=== PATIENT | female | born 1940 ===

== ENCOUNTER 2018-03-11 12:18 | Emergency (ER) | payer MEDICARE, MEDICAID ==
[2018-03-11 12:34] VITALS: O2SAT 98
--- NOTE | 2018-03-11 13:33 | RAD ---
Date of service: 03/11/2018 PROCEDURE: Left Knee Radiographs. HISTORY: Pain. COMPARISON: 07/24/2016 FINDINGS: BONES: Bone alignment is normal. There is periarticular bone demineralization. No acute displaced fracture or bone destruction. JOINTS: Status post knee arthroplasty. Stable appearance of prosthesis in the distal femur. Stable appearance of the proximal tibia post removal of the prosthesis. JOINT EFFUSION: None. OTHER FINDINGS: None. IMPRESSION: No acute fracture or dislocation. Status post total knee arthroplasty, stable appearance of the knee joint.
--- NOTE | 2018-03-11 13:36 | RAD ---
Date of service: 03/11/2018 PROCEDURE: Radiographs of the Lumbar Spine. HISTORY: left sided lowback pain COMPARISON: No prior. FINDINGS: BONES: There is degenerative 6 mm anterior listhesis of L3 on L4 and 3 mm anterior listhesis of L4 on L5. There is normal lumbar lordosis. There is diffuse bone demineralization. There is an age indeterminate osteoporotic compression deformity in L1 vertebral body. DISC SPACES: Advanced multilevel degenerative disc disease with reduced disc heights, anterior osteophytes and multilevel facet arthropathy, worse at L4-5. OTHER FINDINGS: No pathologic soft tissue calcifications. Both sacroiliac joints are normal. IMPRESSION: Age indeterminate osteoporotic compression deformity in L1 vertebral body. Advanced multilevel degenerative disc disease in the lumbar spine worse at L4-5.
--- NOTE | 2018-03-11 13:40 | C.PDOC ---
History Of Present Illness Patient RACHEL from [facility] after a slip and fall. Translation by , states she slipped and fell onto her B/L knees. Patient denies head injury or LOC, dizziness, chest pain, palpitations, SOB. She is c/o L knee pain and low back pain. 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) Current Symptoms Are (Timing): Still Present Severity: Mild Past Medical History Reviewed: Historical Data, Nursing Documentation, Vital Signs Vital Signs: Last Vital Signs Temp 98.3 F 03/11/18 12:31 Pulse 74 03/11/18 12:31 Resp 18 03/11/18 12:31 BP 154/74 H 03/11/18 12:31 Pulse Ox 98 03/11/18 12:31 - Medical History PMH: Diabetes, Hypercholesterolemia Surgical History: Appendectomy Other Surgeries: left total knee replacement Family History: States: No Known Family Hx - Social History Hx Tobacco Use: No Hx Alcohol Use: No Hx Substance Use: No - Immunization History Hx Tetanus Toxoid Vaccination: Yes Hx Influenza Vaccination: Yes Hx Pneumococcal Vaccination: Yes Review Of Systems Constitutional: Negative for: Fever, Chills Cardiovascular: Negative for: Chest Pain, Palpitations Respiratory: Negative for: Shortness of Breath Musculoskeletal: Positive for: Other (B/L knee pain, low back pain ) Neurological: Negative for: Weakness, Numbness, Incoordination, Confusion, Seizures, Altered Mental Status, Headache, Dizziness Physical Exam - Physical Exam Appears: Well, Non-toxic, In Acute Distress (in mild pain ) Oral Mucosa: Moist Cardiovascular: Rhythm Regular Respiratory: Normal Breath Sounds, No Rales, No Rhonchi, No Wheezing Back: No CVA Tenderness, No Vertebral Tenderness, Paraspinal Tenderness (lumbar paraspinal TTP at appprox L2-L4 level) Extremity: Normal ROM, No Pedal Edema, No Calf Tenderness, Capillary Refill (< 2 sec all digits ), No Swelling, Other (Left anterior knee mild diffuse TTP with out swelling/deformity/erythema, (+) healed surgical scar ) Extremity: Bilateral: Normal ROM Pulses: Left Dorsalis Pedis: Normal, Right Dorsalis Pedis: Normal Neurological/Psych: Oriented x3, Normal Speech, Normal Cognition, Normal Cranial Nerves, No Cerebellar Signs, Normal Motor, Normal Sensation Gait: Steady ED Course And Treatment O2 Sat by Pulse Oximetry: 98 (RA) Pulse Ox Interpretation: Normal - Other Rad LS spine Xray X-Ray: Viewed By Me, Read By Radiologist Interpretation: Accession No. : [id number]. Patient Name / ID : HIEN Cobb / [id number]. Exam Date : 03/11/2018 13:10:41 ( Approved ). Study Comment : Sex / Age : F / 77Y. Creator : Jeanette Marquez MD. Dictator : Jeanette Marquez MD. Manager Credit Collections : Supercharge Repair Supervisor : Jeanette Marquez MD. Approver2 : Report Date : 03/11/2018 13:33:28. My Comment : . Date of service: 03/11/2018. PROCEDURE: Radiographs of the Lumbar Spine. HISTORY: left sided lowback pain. COMPARISON: No prior. FINDINGS: BONES: There is degenerative 6 mm anterior listhesis of L3 on L4 and 3 mm anter ior listhesis of L4 on L5. There is normal lumbar lordosis. There is diffuse bone demineralization. There is an age indeterminate osteoporotic compression deformity in L1 vertebral body. DISC SPACES: Advanced multilevel degenerative disc disease with reduced disc heights, anterior osteophytes and multilevel facet arthropathy, worse at L4-5. OTHER FINDINGS: No pathologic soft tissue calcifications. Both sacroiliac joints are normal. IMPRESSION: Age indeterminate osteoporotic compression deformity in L1 vertebral body. Advanced multilevel degenerative disc disease in the lumbar spine worse at L4-5. Left knee Xray X-Ray: Viewed By Me, Read By Radiologist Interpretation: Accession No. : [id number]. Patient Name / ID : HIEN Cobb / [id number]. Exam Date : 03/11/2018 13:06:24 ( Approved ). Study Comment : Sex / Age : F / 77Y. Creator : Jeanette Marquez MD. Dictator : Jeanette Marquez MD. Manager Credit Collections : Supercharge Repair Supervisor : Jeanette Marquez MD. Approver2 : Report Date : 03/11/2018 13:29:45. My Comment : . Date of service: 03/11/2018. PROCEDURE: Left Knee Radiographs. HISTORY: Pain. COMPARISON: 07/24/2016. FINDINGS: BONES: Bone alignment is normal. There is periarticular bone demineralization. No acute displaced fracture or bone destruction. JOINTS: Status post knee arthroplasty. Stable appearance of prosthesis in the distal femur. Stable appearance of the proximal tibia post removal of the prosthesis. JOINT EFFUSION: None. OTHER FINDINGS: None. IMPRESSION: No acute fracture or dislocation. Status post total knee arthroplasty, stable appearance of the knee joint. Progress Note: Patient given PO tylenol. Xrays of L knee and LS spine ordered and reviewed. Reevaluation Time: 13:40 Reassessment Condition: Improved (On reassessment, patient is resting comfortably and states she feels better. She is ambulating normally in the ED. She was instructed to follow up with her orthopedic surgeon within 1 week, and understands she should return to ED if symptoms worsen.) Disposition Counseled Patient/Family Regarding: Studies Performed, Diagnosis, Need For Followup, Rx Given - Disposition Referrals: Som Calero MD [Staff Provider] - Disposition: HOME/ ROUTINE Disposition Time: 13:40 Condition: STABLE Additional Instructions: FOLLOW UP WITH YOUR DOCTOR IN 1-2 DAYS, AND WITH YOUR ORTHOPEDIC SURGEON IF SYMPTOMS PERSIST USE TYLENOL NEEDED FOR PAIN RETURN TO ER IF SYMPTOMS WORSEN Prescriptions: Acetaminophen [Tylenol 325mg tab] 650 mg PO Q6 PRN #30 tab PRN Reason: pain/fever Instructions: Knee Sprain (DC), Patellofemoral Pain Forms: [employer] (Ghanaian) Print Language: ARGENTINE - Clinical Impression Clinical Impression: Lumbar sprain, Left knee pain
[2018-03-11 14:03] VITALS: BP 147/72; PULSE 76; RESP 16; TEMP 98
== END 2018-03-11 14:03 | disposition home or self-care (01) ==
LOC: C.ER 12:18
DX: S33.5XXA Sprain of ligaments of lumbar spine, initial encounter (principal); W01.0XXA Fall on same level from slipping, tripping and stumbling without subsequent striking against object, initial encounter; Y92.29 Other specified public building as the place of occurrence of the external cause; M25.562 Pain in left knee; E78.5 Hyperlipidemia, unspecified; E11.9 Type 2 diabetes mellitus without complications

== ENCOUNTER 2018-06-16 17:14 | Emergency (ER) | payer MEDICARE, MEDICAID ==
--- NOTE | 2018-06-16 18:37 | CT ---
Date of service: 06/16/2018 PROCEDURE: CT HEAD WITHOUT CONTRAST. HISTORY: dizziness COMPARISON: None available. TECHNIQUE: Axial computed tomography images were obtained through the head/brain without intravenous contrast. Radiation dose: Total exam DLP = 1050.74 mGy-cm. This CT exam was performed using one or more of the following dose reduction techniques: Automated exposure control, adjustment of the mA and/or kV according to patient size, and/or use of iterative reconstruction technique. FINDINGS: HEMORRHAGE: No intracranial hemorrhage. BRAIN: Diffuse atrophy with prominence of the ventricles and sulci noted. No mass effect or edema. Intracranial atherosclerosis. The gomez-white matter differentiation appears intact. Please note that MRI with diffusion imaging is more sensitive in the detection of acute ischemic event. VENTRICLES: No hydrocephalus. CALVARIUM: Unremarkable. PARANASAL SINUSES: Unremarkable as visualized. No significant inflammatory changes. MASTOID AIR CELLS: Unremarkable as visualized. No inflammatory changes. OTHER FINDINGS: Left scalp hematoma. IMPRESSION: Left scalp hematoma. No acute intracranial pathology identified.
--- NOTE | 2018-06-16 18:46 | CT ---
Date of service: 06/16/2018 PROCEDURE: CT Cervical Spine without contrast HISTORY: fall COMPARISON: None available. TECHNIQUE: Axial computed tomography images were obtained of the cervical spine without the use of intravenous contrast. Coronal and sagittal reformatted images were created and reviewed. Radiation dose: Total exam DLP = 486.2 mGy-cm. This CT exam was performed using one or more of the following dose reduction techniques: Automated exposure control, adjustment of the mA and/or kV according to patient size, and/or use of iterative reconstruction technique. FINDINGS: VERTEBRAE: No fracture. Normal alignment. No destructive bony lesion. DISCS/SPINAL CANAL/NEURAL FORAMINA: Reversal of the anatomic lordosis with kyphosis. Degree: Mild cervical spondylotic changes C4-5, C6-7. Similar changes incompletely visible in the upper thoracic spine. PARASPINAL SOFT TISSUES: Unremarkable. OTHER FINDINGS: None. IMPRESSION: No acute findings related to/ accounting for the clinical presentation.
--- NOTE | 2018-06-16 18:57 | C.PDOC ---
History Of Present Illness 77 year old female presents to ED s/p trip and fall that occurred this morning. Patient hit her head and complains of left lateral head pain. Patient denies loss of consciousness, chest pain, and SOB. - HPI Time Seen by Provider: 06/16/18 17:56 Chief Complaint (Nursing): Trauma History Per: Patient History/Exam Limitations: no limitations Onset/Duration Of Symptoms: Hrs Location Of Injury: Left: Head (hit left lateral head) - Fall Fall:Prior To Injury: Tripped Past Medical History Reviewed: Historical Data, Nursing Documentation, Vital Signs Vital Signs: Last Vital Signs Temp 97.4 F L 06/16/18 17:41 Pulse 100 H 06/16/18 17:41 Resp 18 06/16/18 17:41 BP 167/64 H 06/16/18 17:41 Pulse Ox 100 06/16/18 17:41 - Medical History PMH: Diabetes, Hypercholesterolemia Surgical History: Appendectomy Family History: States: Unknown Family Hx - Social History Hx Tobacco Use: No Hx Alcohol Use: No Hx Substance Use: No - Immunization History Hx Tetanus Toxoid Vaccination: Yes Hx Influenza Vaccination: Yes Hx Pneumococcal Vaccination: Yes Review Of Systems Except As Marked, All Systems Reviewed And Found Negative. Neurological: Positive for: Headache (head pain) Physical Exam - Physical Exam Head: Other (hemotoma to the left peritoneal temporal area, no gross step offs ) Eye(s): bilateral: Normal Inspection, PERRL, EOMI Neck: No Other (cervical-spinal tenderness) Chest: Symmetrical Cardiovascular: Rhythm Regular, No Murmur Respiratory: Normal Breath Sounds, No Rales, No Rhonchi, No Wheezing Gastrointestinal/Abdominal: Normal Exam, No Tenderness Extremity: Bilateral: Atraumatic, Normal Color And Temperature, Normal ROM Neurological/Psych: Oriented x3, Normal Speech, Normal Cognition ED Course And Treatment O2 Sat by Pulse Oximetry: 100 (in RA) - CT Scan/US Head CT Other Rad Studies (CT/US): Interpreted By Me, Read By Radiologist CT/US Interpretation: IMPRESSION: Left scalp hematoma. No acute intracranial pathology identified. C-spine CT Other Rad Studies (CT/US): Interpreted By Me, Read By Radiologist CT/US Interpretation: IMPRESSION: No acute findings related to/ accounting for the clinical presentation. Medical Decision Making Medical Decision Making: Assessment: Minor head injury Plan: Cervical spinal CT Head CT Upon reassessment, patient is also complaining of left hip pain. Xray ordered. Patient now states pain is better and now refused left hip xray. Disposition - Disposition Referrals: Som Calero MD [Staff Provider] - Disposition: HOME/ ROUTINE Disposition Time: 19:20 Condition: STABLE Additional Instructions: follow up with your doctor within 2 days call to make an appointment take medication as prescribed return to ER if symptoms worsens or progress Instructions: Closed Head Injury (DC) Forms: [employer] (Arabic), General Discharge Instructions - Clinical Impression Clinical Impression: Head injury - Scribe Statement The provider has reviewed the documentation as recorded by the Scribe (Lauren Grey) All medical record entries made by the Scribe were at my direction and personally dictated by me. I have reviewed the chart and agree that the record accurately reflects my personal performance of the history, physical exam, medical decision making, and the department course for this patient. I have also personally directed, reviewed, and agree with the discharge instructions and disposition.
[2018-06-16 19:42] VITALS: BP 131/77; PULSE 82; RESP 16; TEMP 97.9
[2018-06-17 14:36] VITALS: O2SAT 100
== END 2018-06-16 20:27 | disposition home or self-care (01) ==
LOC: C.ER 17:14
DX: S09.90XA Unspecified injury of head, initial encounter (principal); W01.0XXA Fall on same level from slipping, tripping and stumbling without subsequent striking against object, initial encounter; E78.00 Pure hypercholesterolemia, unspecified; E11.9 Type 2 diabetes mellitus without complications